=== PATIENT | male | born 1990 | race Caucasian/White ===

== ENCOUNTER 2019-04-12 04:41 | Emergency (ER) | payer SELFPAY ==
[2019-04-12 05:32] LABS: ABSOLUTE BASOPHILS # (AUTO) 0.1 10^3/uL (0.0-0.2); ABSOLUTE EOSINOPHILS # (AUTO) 0.1 10^3/uL (0.0-0.6); ABSOLUTE MONOCYTES (AUTO) 0.9 10^3/uL (0.1-1.4); ABSOLUTE NEUT (AUTO) 10.2 10^3/uL (1.7-8.2); BASOPHILS % (AUTO) 0.7 % (0-2); HEMATOCRIT 48.7 % (37.9-51.0); HEMOGLOBIN 16.7 g/dL (13.5-17.0); LYMPHOCYTES % (AUTO) 15.3 % (13-45); MEAN CORPUSCULAR HEMOGLOBIN 31.1 pg (27.0-33.4); MEAN CORPUSCULAR HGB CONC 34.3 g/dL (32.0-36.0); MEAN CORPUSCULAR VOLUME 91 fl (80-97); MONOCYTES % (AUTO) 6.7 % (3-13); PLATELET COUNT 403 10^3/uL (150-450); RED BLOOD COUNT 5.36 10^6/uL (4.35-5.55); SEGMENTED NEUTROPHILS % (AUTO) 76.3 % (42-78); TOTAL CELLS COUNTED % (AUTO) 100 %; WHITE BLOOD COUNT 13.3 10^3/uL (4.0-10.5)
[2019-04-12 05:49] LABS: ALBUMIN 4.9 g/dL (3.5-5.0); ALKALINE PHOSPHATASE 65 U/L (38-126); ANION GAP 11 (5-19); ASPARTATE AMINO TRANSFERASE 22 U/L (17-59); BILIRUBIN,TOTAL 1.3 mg/dL (0.2-1.3); BLOOD UREA NITROGEN 15 mg/dL (7-20); CARBON DIOXIDE 31 mmol/L (22-30); CHLORIDE 97 mmol/L (98-107); GLUCOSE 100 mg/dL (75-110); POTASSIUM 4.3 mmol/L (3.6-5.0); TOTAL PROTEIN 7.9 g/dL (6.3-8.2)
[2019-04-12] MEDS ORDERED: KETOROLAC TROMETHAMINE INJ/PF 30 MG/1 ML SDV IV ONE (07:08)
[2019-04-12] MEDS ORDERED: NORMAL SALINE 500 ML IV ONE (07:08)
[2019-04-12] MEDS ORDERED: FAMOTIDINE INJ/PF 20 MG/2 ML SDV IV ONE (07:09)
--- NOTE | 2019-04-12 07:09 | ER Document Report ---
ED GI/ - General Chief Complaint: Upper Abdominal Pain Stated Complaint: STOMACH PAINS Time Seen by Provider: 04/12/19 06:29 Primary Care Provider: [facility] [Provider Group] - Follow up as needed Notes: This 28-year-old man presents to the emergency department complaining that he has pain from his gallbladder. States that he was diagnosed with [place]bladder problems [place]. He states that the pain is in the right upper quadrant and severe. He has some mild nausea no vomiting. He has had similar episodes throughout the past month. TRAVEL OUTSIDE OF THE [place] IN LAST 30 DAYS: No - Related Data Allergies/Adverse Reactions: No Known Allergies Allergy (Verified 04/12/19 04:57) Home Medications: zantac qday Past Medical History - Social History Smoking Status: Current Every Day Smoker Family History: Reviewed & Not Pertinent Patient has suicidal ideation: No Patient has homicidal ideation: No Review of Systems - Review of Systems Notes: Constitutional: Negative for fever. HENT: Negative for sore throat. Eyes: Negative for visual changes. Cardiovascular: Negative for chest pain. Respiratory: Negative for shortness of breath. Gastrointestinal: + Right upper quadrant abdominal pain, no vomiting or diarrhea. Genitourinary: Negative for dysuria. Musculoskeletal: Negative for back pain. Skin: Negative for rash. Neurological: Negative for headaches, weakness or numbness. 10 point ROS negative except as marked above and in HPI. Physical Exam - Vital signs Vitals: Temp Pulse Resp BP Pulse Ox 97.4 F 64 16 135/74 H 100 04/12/19 04:52 04/12/19 04:52 04/12/19 04:52 04/12/19 04:52 04/12/19 04:52 - Notes Notes: PHYSICAL EXAMINATION: Physical Exam: General: Well-nourished well-developed 28-year-old man in no acute distress HEENT: NC/AT, pupils equal round and reactive to light, MM moist,nares clear, Neck: supple, no adenopathy, no masses. Lungs: clear, no wheezing, no rales no rhonchi CVS: Regular rate and rhythm no murmur gallop or rub Abdomen: Soft active tenderness in the left upper quadrant, no guarding, no rebound, no masses, no hepatosplenomegaly Ext: No edema clubbing or cyanosis. Neuro: Alert and responsive, moving all 4 extremities on command, cranial nerves intact. Skin: Intact no open lesions, no rash PSYCH: Normal mood, normal affect. Course - Re-evaluation Re-evalutation: 04/12/19 10:08 Patient had a significant improvement of symptoms with Toradol and Compazine. States that he is ready to go and does not have a local physician. Review of his laboratory data reveals normal liver functions and no significant elevation of lipase. I explained these findings to the patient and encouraged him to follow-up with her primary care doctor. Given him the information for [facility]. - Vital Signs Vital signs: Temp Pulse Resp BP Pulse Ox 97.5 F 71 16 120/66 99 04/12/19 10:20 04/12/19 10:20 04/12/19 10:20 04/12/19 10:20 04/12/19 10:20 - Laboratory Result Diagrams: 04/12/19 05:20 04/12/19 05:20 Laboratory results interpreted by me: 04/12/19 04/12/19 05:20 05:20 WBC 13.3 H Absolute Neuts (auto) 10.2 H Chloride 97 L Carbon Dioxide 31 H Calcium 11.0 H Discharge - Discharge Clinical Impression: Right upper quadrant abdominal pain Condition: Good Disposition: HOME, SELF-CARE Instructions: Abdominal Pain ([facility]), Antispasmodics ([facility]) Prescriptions: Dicyclomine HCl [Bentyl 10 mg Capsule] 1 cap PO TID #30 cap Referrals: [facility] [Provider Group] - Follow up as needed
[2019-04-12 10:24] VITALS: BP 120/66
== END 2019-04-12 10:20 | disposition home or self-care (01) ==
LOC: ER 04:41
DX: R10.11 Right upper quadrant pain (principal); R11.0 Nausea; F17.200 Nicotine dependence, unspecified, uncomplicated
CPT/HCPCS: 99284; 96374; 96375; 36415; 83690; 85025; 80053; J1885; J7040; S0028